=== PATIENT | male | born 1990 | race Two or more races ===

== ENCOUNTER 2020-11-12 15:18 | Outpatient (REF) | payer OTHER, SELFPAY ==
--- NOTE | ~2020-11-12 | XR_ITS ---
EXAMINATION: XR FOREARM, RIGHT CLINICAL INFORMATION: Right forearm pain. COMPARISON: None TECHNIQUE: AP and lateral views of the right forearm were obtained. FINDINGS: Volar stabilization plate with fixation screws at the mid radial diaphysis. No acute hardware or osseous fracture. No perihardware lucency to suggest loosening or infection. No abnormal soft tissue calcification. XR/XR forearm RT 2V IMPRESSION: Radial ORIF without evidence of complication. No acute osseous abnormality.
== END 2020-11-12 15:19 | disposition home or self-care (01) ==
LOC: HO.XRAY 15:18
PROVIDERS: PCP Internal Medicine; Visit Provider Internal Medicine
DX: M79.631 Pain in right forearm (principal)
CPT/HCPCS: 73090

== ENCOUNTER 2020-12-28 11:51 | Outpatient (REF) | payer OTHER, SELFPAY ==
[2020-12-28 16:00] LABS: SARS COV2 PCR INHOUSE NEGATIVE (Negative)
== END 2020-12-28 11:52 | disposition home or self-care (01) ==
LOC: HO.LAB 11:51
PROVIDERS: Visit Provider Internal Medicine
DX: Z20.822 Contact with and (suspected) exposure to COVID-19 (principal)
CPT/HCPCS: C9803; U0003

== ENCOUNTER 2021-05-28 11:54 | Outpatient (REF) | payer OTHER, SELFPAY ==
[2021-05-28 12:43] LABS: COVID-19 Test Negative (Negative)
== END 2021-05-28 11:55 | disposition home or self-care (01) ==
LOC: HO.LAB 11:54
PROVIDERS: PCP Internal Medicine; Visit Provider Internal Medicine
DX: Z20.822 Contact with and (suspected) exposure to COVID-19 (principal)
CPT/HCPCS: 36415; 87635; C9803

== ENCOUNTER 2023-06-15 17:21 | Outpatient (AMB) | payer OTHER, SELFPAY ==
[2023-06-15 17:22] VITALS: BP 122/80; BMI 17.0
--- NOTE | 2023-06-15 17:22 | A.OFFPC_ITS ---
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 by: Self / Same As Patient Allergies No Known Allergies [No Known Allergies*] Allergy (Verified 06/15/23 17:31) Medication List - Last Reconciled 06/15/23 by Tahmina Corley MD No Known Home Meds Tobacco use date assessed: 06/15/23 Dental Screening Dental Screen Date: 06/15/23 Did you have a dental visit in the last 12 months?: Yes Did you have a dental problem in the last 6 months where you did not have access to dental care?: No Was dental information given to patient?: Patient has dentist HPI HPI Comments History of Present Illness Details This is a 33-year-old male that comes for his physical exam. No chest pain or shortness of breath. Doing well. FOR[facility]LY [facility], LATER [facility] Medical History Right forearm pain Right arm fracture Surgical History History of open reduction and internal fixation (ORIF) procedure History of tooth extraction Family History Father No problems noted. Mother Liver failure Paternal Grandmother Diabetes Hypertension CVD (cardiovascular disease) Paternal Grandfather Heart problem Sister In good health Sister In good health Sister In good health Brother In good health Brother In good health Brother In good health Social History Housing: Apartment Alcohol intake: current Alcohol intake frequency: a few times a month Alcohol type: beer Patient Tobacco Use Status: Never used Tobacco Tobacco use type: Cigarette e-Cigarette/Vaping Use: Never Used Second Hand Smoke Exposure: No service: No Current occupational status: unemployed Cognitive needs: No Hearing needs: No Vision needs: No Questionnaire PHQ-9 Over the last 2 weeks, how often have you been bothered by any of the following problems? 1. Little interest or pleasure in doing things: not at all 2. Feeling down, depressed, or hopeless: not at all 3. Trouble falling or staying asleep, or sleeping too much: not at all 4. Feeling tired or having little energy: not at all 5. Poor appetite or overeating: not at all 6. Feeling bad about yourself - or that you are a failure or have let yourself or your family down: not at all 7. Trouble concentrating on things, such as reading the newspaper or watching television: not at all 8. Moving or speaking so slowly that other people could have noticed. Or the opposite - being so fidgety or restless that you have been moving around a lot more than usual: not at all 9. Thoughts that you would be better off or of hurting yourself in some way: not at all Total score: 0 Depression Screening Interpretation: Negative 41254 - PHQ-9 Billing: Yes Source: Developed by Drs. Dontae Rodríguez, Gaviota Dumont, Doroteo Patel and colleagues, with an educational jesse from [employer]. Thrive Questionnaire Date Thrive assessed: 06/15/23 I am a: Patient What is your living situation today?: I have a steady place to live Within the past 12 months, did the food you bought not last and you didn't have the money to get more?: Never true Within the past 12 months, did you worry whether your food would run out before you got money to buy more?: Never true Do you have trouble paying for medicines?: No Do you have trouble getting transportation to medical appointments?: No Do you have trouble paying your heating and electricity bill?: No Do you have trouble taking care of your child, family member or friend?: No Do you have trouble with day-to-day activities such as bathing, preparing meals, shopping, managing finances, etc.?: No Are you currently unemployed and looking for a job?: No Are you interested in more education?: No Please select the resources that you would like help with: None Currently or been in a relationship where the following occur: no concerns reported AUDIT C Alcohol Use Questionnaire (AUDIT-C) 1. How often do you have a drink containing alcohol?: 2-4 times a month 2. How many drinks containing alcohol do you have on a typical day when you are drinking?: 1 or 2 3. How often do you have six or more drinks on one occasion?: Never Total Score: 2 Score Reviewed/Action Taken: No MARINE-7 AMB Questionnaire MARINE-7 Date MARINE - 7 assessed: 06/15/23 Feeling nervous, anxious, or on edge: 0 = Not at all Not being able to stop or control worryin = Not at all Worrying too much about different things: 0 = Not at all Trouble relaxin = Not at all Being so restless that it is hard to sit still: 0 = Not at all Becoming easily annoyed or irritable: 0 = Not at all Feeling afraid as if something awful might happen: 0 = Not at all Total MARINE-7 score (0-4 normal; 5-9 mild; 10-14 moderate; 15-21 severe): 0 Source: Developed by Drs. Dontae Rodríguez, Gaviota Dumont, Doroteo Patel and colleagues, with an educational jesse from [employer]. MARINE-7 Assessment Billing MARINE-7 Assessment Tool: MARINE-7 Assessment 29065 Review of Systems Const All systems reviewed & are unremarkable except as noted in HPI and below Eyes Reports no additional complaints, Denies change in vision and Denies other visual disturbances Card Denies chest pain at rest, Denies chest pain with activity, Denies edema, Denies irregular heart rhythm, Denies claudication, Denies dyspnea, Denies dyspnea on exertion, Denies orthopnea, Denies paroxysmal nocturnal dyspnea and Denies slow heart rate Resp Denies cough, Denies dyspnea and Denies dyspnea on exertion GI Denies abdominal pain, Denies change in bowel habits, Denies excessive flatus, Denies nausea and Denies vomiting Denies urinary hesitancy, Denies urinary incontinence and Denies urinary urgency Musc Denies abnormal gait, Denies atrophy, Denies deformity and Denies limited range of motion Skin/Breast Denies bleeding lesions, Denies changing lesions and Denies rash Neuro Denies abnormal gait and Denies lack of coordination Physical exam (Primary Care) Vital Signs: Last Vital Signs BP 122/80 06/15/23 17:22 BMI result Body Mass Index 17.0 Tobacco/Smoking Status: Tobacco use Status Tobacco use date assessed 06/15/23 06/15/23 17:32 Patient Tobacco Use Status Never used Tobacco 06/15/23 17:32 Tobacco use type Cigarette 06/15/23 17:32 e-Cigarette/Vaping Use Never Used 06/15/23 17:32 PHQ-9: PHQ-9 Score PHQ-9: Total score 0 06/15/23 17:36 Depression Screening Interpretation: Negative Thrive Assessment: Date of Thrive Assessment Date Thrive assessed 06/15/23 06/15/23 17:32 Currently or been in a relationship where the following occur: no concerns reported Const Orientation/consciousness: patient oriented x3 HENMT Head: Yes normal to inspection, Yes normocephalic and Yes atraumatic Ears: external ears normal Mouth: lip normal Eyes General: appearance normal, both eyes and all related structures Eyelids: Yes eyelids normal Conjunctivae: conjunctivae normal Neck Neck: Yes normal visual inspection and Yes supple Resp Effort & Inspection: normal respiratory effort Auscultation: clear to auscultation bilaterally Cardio Jugular venous distension: no JVD Rate: regular rate Rhythm: regular rhythm Heart sounds: S1 normal heart sound present and S2 normal heart sound present GI Inspection: Yes normal to inspection Palpation (GI): Soft to palpation and nontender Auscultation: normal bowel sounds Skin General skin exam: no rashes or lesions noted Neuro General: patient oriented x3 and no focal motor deficits Extrem General: Yes full ROM Psych Appearance: grossly normal Assessment and Plan Assessment & Plan (1) Encounter for physical examination: Code(s): Z00.00 - Encounter for general adult medical examination without abnormal findings Plan: Repear in a year. Orders: Orders HIV Ab/Ag Today Z00.00 - Encounter for general adult medical examination without abnormal findings Lipid Panel Today Z00.00 - Encounter for general adult medical examination without abnormal findings Comprehensive [place]. Panel Fast Today Z00.00 - Encounter for general adult medical examination without abnormal findings Coding Level of Care Code Est Pt Prev Care 18-39y(74038) Diagnoses Encounter for physical examination Z00.00 Additional Codes MARINE-7 Assessment Billing - MARINE-7 Assessment Tool: MARINE-7 Assessment 83177 ([id number]) Time Spent (min) 30
== END 2023-06-15 17:39 | disposition home or self-care (01) ==
LOC: HO.HMGH 17:21
PROVIDERS: PCP Internal Medicine; Visit Provider Internal Medicine
DX: Z00.00 Encounter for general adult medical examination without abnormal findings (principal)
CPT/HCPCS: 99395

== ENCOUNTER 2023-07-01 09:23 | Outpatient (REF) | payer OTHER, SELFPAY | END 2023-07-01 09:24 | disposition home or self-care (01) | LOC: HO.LAB 09:23 | PROVIDERS: PCP Internal Medicine; Visit Provider Internal Medicine | DX: Z00.00 Encounter for general adult medical examination without abnormal findings (principal) | CPT/HCPCS: 36415; 80053; 80061; 87389 ==

== ENCOUNTER 2025-04-21 11:12 | Emergency (ER) | payer OTHER, SELFPAY ==
--- NOTE | ~2025-04-21 | XR_ITS ---
EXAMINATION: XR LUMBOSACRAL SPINE CLINICAL INFORMATION: midline tenderness COMPARISON: None available. TECHNIQUE: Three views of the lumbosacral spine. FINDINGS: There are 5 nonrib-bearing lumbar segments. Vertebral body height and alignment is preserved. There is mild disc space narrowing at L4-5. XR/XR lumbar spine 2-3V IMPRESSION: Minimal degenerative disc disease at L4-5. Electronically signed by: Jan Poe MD 04/21/2025 12:53 PM EDT
[2025-04-21 12:37] VITALS: BP 112/59; PULSE 55; RESP 16; TEMP 36.3; O2SAT 100; BMI 16.7
--- NOTE | 2025-04-21 12:37 | ED.GENADULT ---
HPI - General Adult General Chief complaint: Back Pain/Injury Stated complaint: back pain Time Seen by Provider: 04/21/25 12:38 Source: patient, RN notes reviewed and old records reviewed Mode of arrival: ambulatory Limitations: no limitations History of Present Illness ED Provider: Amari HPI narrative: Patient is a 34-year-old male presenting with complaint of lower back pain for the past 2 days. 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 Denies saddle anesthesia, bowel or bladder incontinence, fevers, hx of IVDU. Denies radiation of pain to lower extremities. complaint: back pain Onset (ago): day(s) Related Data Previous Rx's ?Medication ?Instructions ?Recorded cyclobenzaprine 10 mg tablet 10 mg PO TID PRN muscle spasm #10 04/21/25 tabs lidocaine 5 % topical patch 1 patch topical DAILY #15 ea 04/21/25 Allergies Allergy/AdvReac Type Severity Reaction Status Date / Time No Known Allergies (No Known Allergy Verified 04/21/25 12:39 Allergies*) Review of Systems Review of Systems: As per HPI Yes all other systems are reviewed and are negative Constitutional: Constitutional: Reports as per HPI PMFSH Past Medical History Medical History Right forearm pain Right arm fracture Surgical History History of open reduction and internal fixation (ORIF) procedure History of tooth extraction Family History Family History Father No problems noted. Mother Liver failure Paternal Grandmother Diabetes Hypertension CVD (cardiovascular disease) Paternal Grandfather Heart problem Sister In good health Sister In good health Sister In good health Brother In good health Brother In good health Brother In good health Social History Social History Housing: Apartment Alcohol intake: current Alcohol intake frequency: a few times a month Alcohol type: beer Patient Tobacco Use Status: Never used Tobacco Tobacco use type: Cigarette e-Cigarette/Vaping Use: Never Used Second Hand Smoke Exposure: No Advance Directives: No Advance Directives Information Provided: Yes service: No Current occupational status: unemployed Cognitive needs: No Hearing needs: No Vision needs: No Physical Exam ED Vital Signs: Vital Signs - 24 hr 04/21/25 12:37 04/21/25 13:37 Temperature 97.4 F 97.4 F Pulse Rate 55 55 Respiratory Rate 16 16 Blood Pressure 112/59 L 112/59 L Pulse Oximetry 100 100 Oxygen Delivery Method Room Air BMI result Body Mass Index 16.7 Vital signs have been reviewed and appear to be correct. Blood pressure normal. Heart rate normal. Respiratory rate normal. Temperature normal. Oxygen saturation normal. Const General: cooperative, healthy appearing and no acute distress Orientation/consciousness: oriented to person, oriented to place, oriented to time and patient oriented x3 Limitations: no limitations HENMT Head: Yes normocephalic and Yes atraumatic Ears: external ears normal General nose exam: Normal external nose present Face and sinus: Yes face symmetric Mouth: oropharynx normal and moist mucous membranes Throat: Yes uvula midline Eyes Pupils: Equal, round and reactive pupils present Neck Neck: Yes normal visual inspection and Yes supple Resp Effort & Inspection: normal respiratory effort and able to speak in complete sentences Auscultation: clear to auscultation bilaterally Cardio Rate: regular rate Rhythm: regular rhythm Heart sounds: S1 normal heart sound present and S2 normal heart sound present GI Palpation (GI): Soft to palpation and nontender Auscultation: normoactive bowel sounds General: Yes no CVA tenderness Back/Spine/Pelvis Back: no CVA tenderness Thoracic/Lumbar Spine: thoracic and lumbar spine normal to inspection, thoraco-lumbar ROM normal, straight leg raise negative bilaterally, pain with thoraco-lumbar ROM, No paraspinal muscle tenderness, No thoracic spinal tenderness and lumbar spinal tenderness at L4 and at L5 Skin General skin exam: elasticity normal and turgor normal Neuro General: oriented to person, oriented to place, oriented to time, patient oriented x3, gait normal, tone normal, moves all extremities, Normal light touch and pain sensation, no focal motor deficits, CN's II-XI intact bilaterally and deep tendon reflexes 2+ bilaterally Cranial nerves: Yes Equal, round and reactive pupils present Cognition (Neuro): normal cognition Motor exam (neuro): 5/5 motor strength present throughout, Normal motor muscle tone present throughout and Motor abnormalities not present Extrem General: Yes full ROM, Yes no pedal edema and Yes no calf tenderness Psych Mental Status: mental status grossly normal Affect: normal affect Thought process: Normal thought process present Medical Decision Making Medical Decision Making [facility] Narrative: Patient is a 34-year-old male presenting with complaint of lower back pain for the past 2 days. On exam patient is awake, A+Ox3, VS WNL, afebrile, normal neurological exam without focal deficits, physical exam findings as above. Given reported symptoms and physical exam findings, initial differential includes but is not limited to initial differential includes lumbar strain, lumbar radiculopathy, degenerative disc disease, disc herniation, spinal stenosis, spondylosis. Less likely vertebral fracture. Do not suspect malignancy/mass, SEA, cauda equina/cord compression. X-ray lumbar spine notable for mild DDD. My interpretation is in agreement with the radiologist's interpretation. Results discussed with patient all questions answered. Will treat with Flexeril and topical lidocaine patches. Return precautions discussed. Patient verbalized understanding of and agreement with plan. In-person certified court interpreter was utilized for all interactions, assessments, and discussions. Differential Diagnosis Differential Diagnoses: The differential diagnosis associated with the presentation includes as per [facility] Admission/Observation Consideration of admission/observation: Escalation of care including admission/observation considered Patient would have been admitted to the hospital had their clinical presentation warranted hospital admission. Independent Interpretation I performed an independent interpretation of an: Plain X-Ray Interpretation: Mild lumbar DDD on xray Radiology Impression Discussion of test interpretation with radiology: I have reviewed the radiologist's reading. Radiologist Impression: XR/XR lumbar spine 2-3V IMPRESSION: Minimal degenerative disc disease at L4-5. External Record Review External record reviewed: Inpatient record, Office record and Outpatient record Prescription Management I considered prescription management with: Other Discharge Plan Discharge Clinical Impression: DDD (degenerative disc disease), lumbar Qualifiers: Disc-related pain type: discogenic back pain only Qualified Code(s): M51.360 - Other intervertebral disc degeneration, lumbar region with discogenic back pain only Lumbar strain Qualifiers: Encounter type: initial encounter Qualified Code(s): S39.012A - Strain of muscle, fascia and tendon of lower back, initial encounter Patient Disposition: Home, Self-Care Instructions: Degenerative Disc Disease (ED) Additional Instructions: You were evaluated in the emergency department today for back pain. Your evaluation did not show signs of medical conditions requiring emergent intervention at this time. We recommended that you use ibuprofen or Tylenol per package directions every 6 hours as needed for pain. If necessary, you can alternate these medications so that you take one medication every 3 hours. For instance, at noon take ibuprofen, then at 3:00 p.m. take Tylenol, then at 6:00 p.m. take ibuprofen. You have been prescribed a muscle relaxer called Flexeril (cyclobenzaprine) which you may take every 8 hours as needed for spasms. Do not drive, drink alcohol, or operate heavy machinery while taking this as it can cause drowsiness. You have been prescribed 5% topical lidocaine patches which you can wear for up to 12 hours in a 24 hour period. Do not apply heat directly over the patches. Please schedule an appointment for follow-up with your primary care physician this week for further evaluation of your symptoms. Return to the emergency department if you experience worsening back pain, difficulty walking, fevers, numbness, tingling, incontinence, groin numbness or tingling, or any other concerning symptoms. Prescriptions: New cyclobenzaprine 10 mg tablet 10 mg PO TID PRN (Reason: muscle spasm) Qty: 10 0RF lidocaine 5 % adhesive patch,medicated 1 patch topical DAILY Qty: 15 0RF Rx Instructions: leave on most painful area for up to 12 hrs Stand Alone Forms: Work/School Release Interventions: ED Discharge Assessment Last Done: 04/21/25 13:37 Discharge Date/Time: 04/21/25 13:41 Print Language: Slovenian
[2025-04-21 13:37] VITALS: BP 112/59; PULSE 55; RESP 16; TEMP 36.3; O2SAT 100
== END 2025-04-21 13:41 | disposition home or self-care (01) ==
PROVIDERS: Emergency Provider Emergency Medicine; PCP Internal Medicine
DX: M51.360 Other intervertebral disc degeneration, lumbar region with discogenic back pain only (principal); S39.012A Strain of muscle, fascia and tendon of lower back, initial encounter; X50.9XXA Other and unspecified overexertion or strenuous movements or postures, initial encounter; Y93.9 Activity, unspecified; Y92.9 Unspecified place or not applicable; Y99.9 Unspecified external cause status
CPT/HCPCS: 72100; 99282; 99283

== ENCOUNTER → 2025-04-21 12:38 | Outpatient (BNV) | payer OTHER, SELFPAY | PROVIDERS: Emergency Provider Emergency Medicine; PCP Internal Medicine; Visit Provider Radiology Diagnostic Radiology | DX: M54.50 Low back pain, unspecified (principal) | CPT/HCPCS: 72100 ==

== ENCOUNTER 2025-05-04 21:18 | Emergency (ER) | payer OTHER, SELFPAY ==
[2025-05-04 21:25] VITALS: BP 113/67; PULSE 70; RESP 18; TEMP 37.2; O2SAT 97; BMI 17.8
[2025-05-05 01:47] VITALS: BP 97/56; PULSE 71; RESP 16; TEMP 36.7; O2SAT 98
[2025-05-05 06:38] VITALS: BP 97/55; PULSE 68; RESP 18; O2SAT 99
--- NOTE | 2025-05-05 06:42 | ED.BACK ---
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 Sheri Lua HPI Narrative: 34-year-old male with no significant past medical history presenting with continued low back pain radiating down both of his buttocks and legs to about the area of his knees bilaterally. Patient was seen in this emergency department approximately 1 week prior with similar complaints. Patient admits that he feels his back pain is related to lifting at work. Admits he continues to do the same job and feels as though it is exacerbated by lifting at work. No further back trauma. No specific injury. Patient denies associated fevers or chills, headaches or vision changes, stiff neck, loss of bowel or bladder control, urinary retention, direct trauma to the spine or specific injury, numbness/tingling/weakness of the extremities, IV drug use, history of recent instrumentation or injections into the spine. Related Data Previous Rx's ?Medication ?Instructions ?Recorded cyclobenzaprine 10 mg tablet 10 mg PO TID PRN muscle spasm #10 04/21/25 tabs lidocaine 5 % topical patch 1 patch topical DAILY #15 ea 04/21/25 methylprednisolone 4 mg tablets in 4 mg PO DAILY #21 ea 05/05/25 a dose pack (Medrol (Jerry)) cyclobenzaprine 10 mg tablet 10 mg PO TID PRN muscle spasm #20 05/09/25 tabs ibuprofen 600 mg tablet 600 mg PO Q6H PRN pain #30 tabs 05/09/25 ondansetron 4 mg disintegrating 4 mg PO Q8H PRN nausea and 05/09/25 tablet vomiting #20 tabs Allergies Allergy/AdvReac Type Severity Reaction Status Date / Time No Known Allergies (No Known Allergy Verified 05/09/25 19:20 Allergies*) Review of Systems Review of Systems: as per HPI, full review of systems performed and negative but for the above mentioned pertinent positives and negatives. [facility] Past Medical History Medical History Right forearm pain Right arm fracture Surgical History History of open reduction and internal fixation (ORIF) procedure History of tooth extraction Family History Family History Father No problems noted. Mother Liver failure Paternal Grandmother Diabetes Hypertension CVD (cardiovascular disease) Paternal Grandfather Heart problem Sister In good health Sister In good health Sister In good health Brother In good health Brother In good health Brother In good health Social History Social History Housing: Apartment Alcohol intake: current Alcohol intake frequency: a few times a month Alcohol type: beer Patient Tobacco Use Status: Never used Tobacco Tobacco use type: Cigarette Smoked in Last 30 Days: No e-Cigarette/Vaping Use: Never Used Second Hand Smoke Exposure: No Use of substances other than those prescribed or required for medical reasons: No Advance Directives: No Advance Directives Information Provided: No service: No Current occupational status: unemployed Cognitive needs: No Hearing needs: No Vision needs: No Physical Exam Exam: Exam: GENERAL: well-appearing, appears uncomfortable. SKIN: Normal skin color for ethnicity, warm, dry, no rashes noted. HEENT:? Normocephalic, atraumatic, no stridor, dry mucous membranes, dentition intact, EOMI. NECK: Soft, supple, full ROM, midline structures nontender, no step-offs, no deformities, no lymphadenopathy. CHEST: Heart regular rhythm, no murmurs, symmetric chest rise and fall. PULMONARY: Clear to auscultation bilaterally, diminished at the bases, no labored breathing, no wheezes/rhales/rhonchi. ABDOMINAL: Soft, nondistended, nontender, positive bowel sounds in all quadrants. : Deferred. MUSCULOSKELETAL: Normal tone, full range of motion, no deformities, no peripheral edema, +2/4 Patellar reflexes bilaterally, neurovascularly intact distally, no midline spine tenderness or step-off. NEURO: Alert and oriented x3, CN II through XII intact, equal strength and sensation bilateral upper and lower extremities, no focal neurologic deficits.? PSYCHIATRIC: Flat affect, fluid speech, good eye contact and appropriate demeanor. Vital Signs: Vital Signs: Last Vital Signs Temp 97.8 F 05/05/25 06:50 Pulse 68 05/05/25 06:50 Resp 18 05/05/25 06:50 BP 97/55 L 05/05/25 06:50 Pulse Ox 99 05/05/25 06:50 O2 Del Method Room Air 05/05/25 06:50 BMI result Body Mass Index 17.8 Medications Administered Discontinued Medications Generic Name Dose Route Start Last Admin Trade Name Caridad PRN Reason Stop Dose Admin Dexamethasone Sodium Phosphate 6 mg 05/05/25 06:28 05/05/25 06:36 Dexamethasone Sod Phosphate 4 Mg/Ml Vial IM 05/05/25 06:29 6 mg ONCE ONE Administration Diazepam 2 mg 05/05/25 06:28 05/05/25 06:36 Diazepam 2 Mg Tablet PO 05/05/25 06:29 2 mg ONCE ONE Administration Medical Decision Making Medical Decision Making MDM Narrative: Patient presents today with a chief complaint of back pain. Differential diagnosis includes musculoskeletal pain, osseous abnormality such as fracture or tumor, infection, spinal cord pathology such as cauda equina syndrome, ligamentous or disc pathology, vascular abnormalities, among many others. I reviewed the list of red flag features such as trauma, weight loss, abnormal neurological findings such as weakness, bowel or bladder incontinence, saddle paresthesia, as well as history of cancer, IV drug abuse, fever, to list a few. Based on history and physical examination, there is no further indication for continued neuroimaging or lab work. He has no evidence of infection, no direct trauma to the spine, exam consistent with sciatic nerve pain. We will continue with muscle relaxers. He requested and was provided with a work note. Discussed return precautions at length. He understands and agrees with plan for discharge. Discharged home in stable condition. 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 No suspenda gail medicamento antes de tiempo si empieza a sentirse mejor. Regrese a urgencias si presenta s?ntomas nuevos o que empeoran, colleen p?rdida del control de la vejiga o los intestinos, fiebre superior a 38?C, debilidad en las piernas o cualquier s?ntoma nuevo que le preocupe. Llame al 911 ante cualquier emergencia m?dica. Prescriptions: New methylprednisolone [Medrol (Jerry)] 4 mg tablets,dose pack 4 mg PO DAILY Qty: 21 0RF No Action cyclobenzaprine 10 mg tablet 10 mg PO TID PRN (Reason: muscle spasm) Qty: 10 0RF lidocaine 5 % adhesive patch,medicated 1 patch topical DAILY Qty: 15 0RF Rx Instructions: leave on most painful area for up to 12 hrs cyclobenzaprine 10 mg tablet 10 mg PO TID PRN (Reason: muscle spasm) Qty: 20 0RF ibuprofen 600 mg tablet 600 mg PO Q6H PRN (Reason: pain) Qty: 30 0RF ondansetron 4 mg tablet,disintegrating 4 mg PO Q8H PRN (Reason: nausea and vomiting) Qty: 20 0RF Stand Alone Forms: Work/School Release Interventions: ED Discharge Assessment Last Done: 05/05/25 06:50 Discharge Date/Time: 05/05/25 06:52 Print Language: Faroese
[2025-05-05 06:50] VITALS: BP 97/55; PULSE 68; RESP 18; TEMP 36.6; O2SAT 99
--- NOTE | 2025-05-05 07:11 | ED.BACK ---
HPI - Back Pain/Injury General Chief Complaint: Back Pain/Injury Stated Complaint: back pain, pain travels to legs Time Seen by Provider: 05/05/25 06:01 Related Data Previous Rx's ?Medication ?Instructions ?Recorded cyclobenzaprine 10 mg tablet 10 mg PO TID PRN muscle spasm #10 04/21/25 tabs lidocaine 5 % topical patch 1 patch topical DAILY #15 ea 04/21/25 methylprednisolone 4 mg tablets in 4 mg PO DAILY #21 ea 05/05/25 a dose pack (Medrol (Jerry)) Allergies Allergy/AdvReac Type Severity Reaction Status Date / Time No Known Allergies (No Known Allergy Verified 05/04/25 21:28 Allergies*) [facility] Past Medical History Medical History Right forearm pain Right arm fracture Surgical History History of open reduction and internal fixation (ORIF) procedure History of tooth extraction Family History Family History Father No problems noted. Mother Liver failure Paternal Grandmother Diabetes Hypertension CVD (cardiovascular disease) Paternal Grandfather Heart problem Sister In good health Sister In good health Sister In good health Brother In good health Brother In good health Brother In good health Social History Social History Housing: Apartment Alcohol intake: current Alcohol intake frequency: a few times a month Alcohol type: beer Patient Tobacco Use Status: Never used Tobacco Tobacco use type: Cigarette e-Cigarette/Vaping Use: Never Used Second Hand Smoke Exposure: No Advance Directives: No Advance Directives Information Provided: No service: No Current occupational status: unemployed Cognitive needs: No Hearing needs: No Vision needs: No Physical Exam Vital Signs: Vital Signs: Last Vital Signs Temp 97.8 F 05/05/25 06:50 Pulse 68 05/05/25 06:50 Resp 18 05/05/25 06:50 BP 97/55 L 05/05/25 06:50 Pulse Ox 99 05/05/25 06:50 O2 Del Method Room Air 05/05/25 06:50 BMI result Body Mass Index 17.8 Medications Administered Discontinued Medications Generic Name Dose Route Start Last Admin Trade Name Freq PRN Reason Stop Dose Admin Dexamethasone Sodium Phosphate 6 mg 05/05/25 06:28 05/05/25 06:36 Dexamethasone Sod Phosphate 4 Mg/Ml Vial IM 05/05/25 06:29 6 mg ONCE ONE Administration Diazepam 2 mg 05/05/25 06:28 05/05/25 06:36 Diazepam 2 Mg Tablet PO 05/05/25 06:29 2 mg ONCE ONE Administration Discharge Plan Discharge Clinical Impression: Sciatica Qualifiers: Laterality: right Qualified Code(s): M54.31 - Sciatica, right side Patient Disposition: Home, Self-Care Instructions: Sciatica (ED) Additional Instructions: [place] tobin esteroides todos los d?as hasta completar el tratamiento. No suspenda gail medicamento antes de tiempo si empieza a sentirse mejor. Regrese a urgencias si presenta s?ntomas nuevos o que empeoran, colleen p?rdida del control de la vejiga o los intestinos, fiebre superior a 38?C, debilidad en las piernas o cualquier s?ntoma nuevo que le preocupe. Llame al 911 ante cualquier emergencia m?dica. Prescriptions: New methylprednisolone [Medrol (Jerry)] 4 mg tablets,dose pack 4 mg PO DAILY Qty: 21 0RF No Action cyclobenzaprine 10 mg tablet 10 mg PO TID PRN (Reason: muscle spasm) Qty: 10 0RF lidocaine 5 % adhesive patch,medicated 1 patch topical DAILY Qty: 15 0RF Rx Instructions: leave on most painful area for up to 12 hrs Stand Alone Forms: Work/School Release Interventions: ED Discharge Assessment Last Done: 05/05/25 06:50 Discharge Date/Time: 05/05/25 06:52 Print Language: Beninese
== END 2025-05-05 06:52 | disposition home or self-care (01) ==
PROVIDERS: Emergency Provider Emergency Medicine; PCP Internal Medicine
DX: M54.30 Sciatica, unspecified side (principal); M25.562 Pain in left knee; M25.561 Pain in right knee
CPT/HCPCS: 96372; 99283; 99284; J1100

== ENCOUNTER 2025-05-09 18:49 | Emergency (ER) | payer OTHER, SELFPAY ==
[2025-05-09] VITALS (7 sets, daily range): BP systolic 104–111; BP diastolic 60–78; PULSE 70–105; RESP 15–18; TEMP 36.9–38.6; O2SAT 98–99; BMI 16.4; BMI 18.0
--- NOTE | ~2025-05-09 | CT_ITS ---
CLINICAL HISTORY: R flank pain, weight loss, fevers CT abdomen and pelvis with contrast Comparison: None provided. Findings: No consolidation or effusion. The gallbladder and solid organs are within normal limits. There is minimal fullness of the bilateral renal collecting systems with mild diffuse bilateral hydroureter. The kidneys enhance symmetrically. No bowel obstruction, pneumoperitoneum, or pneumatosis. Multiple fluid-filled loops of nondilated ileum are present at the mid to lower abdomen. Mildly limited evaluation of the distal colon and rectum related to bowel underdistention at these sites. Pelvic contents unremarkable. No bladder wall thickening. The bladder is moderately distended with fluid. Minimal free fluid present within the pelvis. Normal appendix. No acute fracture visualized. IMPRESSION: 1. Multiple fluid-filled loops of nondilated ileum present at the mid to lower abdomen. This finding is nonspecific, but may be seen in the setting of a mild enteritis. No bowel obstruction. 2. Minimal fullness of the bilateral renal collecting systems without overt hydronephrosis. There is mild, diffuse bilateral hydroureter. This is nonspecific but may be related to the moderately distended urinary bladder. No bladder wall thickening appreciated. 3. Minimal free fluid present dependently within the pelvis. This is abnormal in a male patient, suggesting reactive fluid. This document has been electronically signed by: Tacho Mcdonald MD on 05/09/2025 21:21:31
--- NOTE | 2025-05-09 19:21 | ED_ITS ---
HPI - Back Pain/Injury General Chief Complaint: Fever Stated Complaint: back pain Time Seen by Provider: 05/09/25 19:19 Source: patient and old records reviewed Mode of arrival: ambulatory Limitations: no limitations History of Present Illness ED Provider: ROBERT WEBB Narrative: 34 yo male with no sig PMH works in [employer] has had R sided flank pain x 1 month but unknown trauma. He has no IVDA, no b/b incontinence no saddle anesthesia. He started with a fever last night and pain worsened at 9pm. He denies dysuria, has mild diarrhea, denies any recent travel or procedures. He took no medications today. He thinks he has lost 20lbs in the past month as well. MD elicited complaint: back pain Pertinent past history: prior back pain Onset (ago): month(s) (1) Severity: severe Quality: aching Location: lumbar spine and right flank Radiation: buttocks Exacerbating factors: movement Relieving factors: none Context: unknown Associated symptoms: fever, chills and other (diarrhea) Work related injury: No Related Data Previous Rx's ?Medication ?Instructions ?Recorded cyclobenzaprine 10 mg tablet 10 mg PO TID PRN muscle s pasm #10 04/21/25 tabs lidocaine 5 % topical patch 1 patch topical DAILY #15 ea 04/21/25 methylprednisolone 4 mg tablets in 4 mg PO DAILY #21 e a 05/05/25 a dose pack (Medrol (Jerry)) cyclobenzaprine 10 mg tablet 10 mg PO TID PRN muscle s pasm #20 05/09/25 tabs ibuprofen 600 mg tablet 600 mg PO Q6H PRN pain #30 t abs 05/09/25 ondansetron 4 mg disintegrating 4 mg PO Q8H PRN nausea and 05/09/25 tablet vomiting #20 tabs Allergies Allergy/AdvReac Type Severity Reaction Status Date / Time No Known Allergies (No Known Allergy Verified 05/09/25 19:20 Allergies*) Review of Systems 2 Review of Systems: Constitutional : pos Weight loss, pos Fever, pos Chills, ENT/Mouth : No Hearing loss, No Ear Pain, No Nasal Congestion, No Sinus Pain, No Hoarseness, No sore throat, No Rhinorrhea, No Swallowing Difficulty Cardiovascular : No Chest Pain, No SOB Respiratory : No Cough, No Dyspnea Gastrointestinal : No Nausea, No Vomiting, pos Diarrhea, No abdominal Pain, No Hematochezia, No Melena Genitourinary : No Dysuria, No Urinary Frequency, No Hematuria, No Urinary Incontinence, Musculoskeletal : positive back pain Skin : No Skin Lesions, No rash Neuro : No Weakness, No Numbness, No Paresthesias, no loss of bowel or bladder incontinence, no saddle anesthesia Yes all other systems are reviewed and are negative [facility] Past Medical History Attestation statement: The following information was validated with the patient. Source: old records reviewed Medical History Right forearm pain Right arm fracture Surgical History History of open reduction and internal fixation (ORIF) procedure History of tooth extraction Family History Family History Father No problems noted. Mother Liver failure Paternal Grandmother Diabetes Hypertension CVD (cardiovascular disease) Paternal Grandfather Heart problem Sister In good health Sister In good health Sister In good health Brother In good health Brother In good health Brother In good health Social History Social History Housing: Apartment Alcohol intake: current Alcohol intake frequency: a few times a month Alcohol type: beer Patient Tobacco Use Status: Never used Tobacco Tobacco use type: Cigarette Smoked in Last 30 Days: No e-Cigarette/Vaping Use: Never Used Second Hand Smoke Exposure: No Use of substances other than those prescribed or required for medical reasons: No Advance Directives: No Advance Directives Information Provided: No service: No Current occupational status: unemployed Cognitive needs: No Hearing needs: No Vision needs: No Physical Exam 2 Vital Signs: Vital Signs: Last Vital Signs Temp 98.9 F 05/09/25 21:39 Pulse 70 05/09/25 21:39 Resp 17 05/09/25 21:39 BP 107/69 05/09/25 21:39 Pulse Ox 98 05/09/25 21:39 O2 Del Method Room Air 05/09/25 21:39 BMI result Body Mass Index 18.0 Appearance: Alert. Oriented X3. Mild acute distress. Eyes: Pupils equal, round and reactive to light. ENT: Pharynx dry MM. He is thin has mild temporal wasting Neck: Normal inspection. Neck supple. CVS: tachycardic heart rate and rhythm. Pulses normal. Respiratory: No respiratory distress. Breath sounds normal. Abdomen: Soft and nontender. Flank: R CVA ttp, has no midline ttp Skin: Skin warm and dry. Normal skin color. Normal skin turgor. Extremities: No lower extremity edema. No calf ttp Neuro: Oriented X 3. No motor deficit. No sensory deficit. 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 Defer additional HPI, ROS and PE to primary provider. This is a 34-year-old male with no known medical history who has been struggling with lower back pain for the last month. Today noted to be febrile. Patient also reports unintentional weight loss. Patient has fever and tachycardia in triage Will obtain labs, UA, viral testing. Tylenol will be ordered Nursing notified and patient will be brought direct to bed as he is meeting sepsis criteria. Reevaluation(s) Reevaluation #1: voided and bladder scan 116 Medications Administered Discontinued Medications Generic Name Dose Route Start Last Admin Trade Name Freq PRN Reason Stop Dose Admin Acetaminophen 975 mg 05/09/25 19:20 05/09/25 19:47 Acetaminophen 325 Mg Tablet PO 05/09/25 19:21 Not Given ONCE ONE Ceftriaxone Sodium 1 gm 05/09/25 19:37 05/09/25 19:47 Ceftriaxone Sodium 1 Gm Vial IVPUSH 05/09/25 19:38 1 gm ONCE ONE Administration Sodium Chloride 1,000 mls @ 999 mls/hr 05/09/25 19:21 05/09/25 22:00 Ns IV 05/09/25 20:21 Infused .Q1H1M STA Infusion Lactated Ringer's 1,000 mls @ 999 mls/hr 05/09/25 19:37 05/09/25 22:00 Lr IV 05/09/25 20:37 Infused .Q1H1M ONE Infusion Acetaminophen 1,000 mg in 100 mls @ 400 mls/hr 05/09/25 19:37 05/09/25 20:20 Ofirmev IV 05/09/25 19:51 Infused ONCE ONE Infusion Ketorolac Tromethamine 15 mg 05/09/25 19:37 05/09/25 19:48 Ketorolac Tromethamine 15 Mg/Ml Vial IVPUSH 05/09/25 19:38 15 mg ONCE ONE Administration Medical Decision Making Medical Decision Making [facility] Narrative: 34 yo male with no sig PMH here with c/o fevers and diarrhea which are new since 9pm yesterday. He denies travel or sick contacts. He has had R flank pain x 1 month now with weight loss. He adamantly denies IVDA. At this time will need labs, cultures, CT scan for mass/pyelo Differential Diagnosis Differential Diagnoses: The differential diagnosis associated with the presentation includes pyelo, tick borne illness, viral syndrome, mass, cancer Admission/Observation Consideration of admission/observation: Escalation of care including admission/observation considered tolerating PO. his weight loss he has gained back 4kg from prior visit no mass in back. no midline ttp I do not think he has epidural abscess he is not toxic looks much better no CP/SOB to suggest VTE will DC with motrin, zofran, flexeril, PT script Lab Data [facility] Lab Attestation statement: I reviewed the patient's lab results. 05/09/25 19:29 05/09/25 19:29 Labs: Lab Results 05/09/25 05/09/25 05/09/25 Range/Units 19:29 20:09 21:22 WBC 12.4 H (4.8-10.8) X10*3/uL RBC 5.17 (4.60-5.80) X10*6/uL Hgb 15.0 (14.0-18.0) g/dl Hct 43.8 (42.0-52.0) % MCV 84.7 (80.0-98.0) fL MCH 29.0 (27.0-33.0) pg MCHC 34.2 (31.0-36.0) g/dl RDW 12.8 (11.0-16.0) % Plt Count 401 H (160-400) X10*3/uL MPV 10.1 (9.4-12.4) fL Immature Gran % (Auto) 0.4 (0.0-0.4) % Neut % (Auto) 74.4 H (45-73) % Lymph % (Auto) 9.5 L (20-40) % Bureau % (Auto) 15.3 H (2-11) % Eos % (Auto) 0.2 (0-4) % Baso % (Auto) 0.2 (0-2) % Lymph # (Auto) 1.2 (1.2-4.9) X10*3/uL Bureau # (Auto) 1.9 H (0.1-1.2) X10*3/uL Eos # (Auto) 0.0 (0.0-0.4) X10*3/uL Baso # (Auto) 0.0 (0.0-0.2) X10*3/uL Abs Immat Gran (auto) 0.05 H (0.00-0.03) X10*3/uL Absolute Neuts (auto) 9.2 H (2.0-8.3) x10*3/uL Absolute Nucleated RBC 0.000 (0.0-0.012) X10*3/uL Nucleated RBC % (auto) 0.0 (0.0-0.2) /100WBC Smear Tech's Comments VERIFIED Sodium 137 (135-145) mmol/L Potassium 5.3 H (3.3-5.1) mmol/L Chloride 98 (96-108) mmol/L Carbon Dioxide 28 (22-29) mmol/L Anion Gap 16 (12-20) BUN 13 (9-16) mg/dL Creatinine 0.89 (0.5-1.4) mg/dL Estim Creat Clear Calc 88.4 Estimated GFR > 60 Random Glucose 91 (60-115) mg/dL Lactic Acid 1.8 (0.5-2.0) mmol/L Calcium 9.2 (8.4-10.2) mg/dL Total Bilirubin 0.5 (0.0-1.0) mg/dL Direct Bilirubin 0.1 (0.0-0.5) mg/dL AST 42 H (5-37) U/L ALT 31 (0-40) U/L Alkaline Phosphatase 89 (39-117) U/L Total Protein 8.7 H (6.5-8.0) g/dL Albumin 4.5 (3.5-5.0) g/dL Urine Color Yellow Urine Appearance Clear Urine pH 7.0 (5.0-9.0) Ur Specific [place] 1.010 (1.005-1.025) Urine Protein Negative (Neg-Trace) mg/dL Urine Glucose (UA) Negative (Negative) mg/dL Urine Ketones Negative (Negative) mg/dL Urine Blood Negative (Negative) Urine Nitrite Negative (Negative) Ur Leukocyte Esterase Negative (Negative) Urine Opiates Screen Not Detected (Not Detect) Ur Buprenorphine Scrn Not Detected (Not Detect) ng/mL Ur Oxycodone Screen Not Detected (Not Detect) ng/mL Urine Methadone Screen Not Detected (Not Detect) ng/mL Urine Fentanyl Screen Not Detected (Not Detect) Ur Barbiturates Screen Not Detected (Not Detect) Ur Phencyclidine Scrn Not Detected (Not Detect) Ur Amphetamines Screen Not Detected (Not Detect) U Benzodiazepines Scrn Not Detected (Not Detect) Urine Cocaine Screen Not Detected (Not Detect) U Marijuana (THC) Screen Not Detected (Not Detect) Influenza Type A (PCR) NEGATIVE (Negative) Influenza Type B (PCR) NEGATIVE (Negative) RSV RNA Qual (PCR) NEGATIVE (Negative) SARS-CoV-2 RNA (RT-PCR) POSITIVE A (Negative) S. pyogenes GrpA DONA Negative (Negative) Independent Interpretation I performed an independent interpretation of an: CT Scan (enteritis , reactive free fluid) Radiology Impression Discussion of test interpretation with radiology: I have reviewed the radiologist's reading. External Record Review External record reviewed: Outpatient record Prescription Management I considered prescription management with: Pain Medication, Antiviral and Other Discharge Plan Discharge Clinical Impression: COVID-19, Gastroenteritis Fever Qualifiers: Fever type: unspecified Qualified Code(s): R50.9 - Fever, unspecified Patient Disposition: Home, Self-Care Instructions: Flank Pain (ED), Enteritis (ED), COVID-19 (Coronavirus Disease 2019) (ED) Additional Instructions: rest and stay hydrated return for worsening symptoms, chest pain, trouble breathing, unable to eat or drink, numbness or weakness or any other concerns you need to see your doctor about your back pain wear a mask and protect others for the next 5 days Prescriptions: New cyclobenzaprine 10 mg tablet 10 mg PO TID PRN (Reason: muscle spasm) Qty: 20 0RF ibuprofen 600 mg tablet 600 mg PO Q6H PRN (Reason: pain) Qty: 30 0RF ondansetron 4 mg tablet,disintegrating 4 mg PO Q8H PRN (Reason: nausea and vomiting) Qty: 20 0RF No Action methylprednisolone [Medrol (Jerry)] 4 mg tablets,dose pack 4 mg PO DAILY Qty: 21 0RF cyclobenzaprine 10 mg tablet 10 mg PO TID PRN (Reason: muscle spasm) Qty: 10 0RF lidocaine 5 % adhesive patch,medicated 1 patch topical DAILY Qty: 15 0RF Rx Instructions: leave on most painful area for up to 12 hrs Stand Alone Forms: Work/School Release Print Language: Kyrgyz
[2025-05-09 19:43] LABS: Hematocrit 43.8 % (42.0-52.0); Hemoglobin 15.0 g/dl (14.0-18.0); Imm Gran Abs Auto 0.05 X10*3/uL (0.00-0.03); Imm Gran Pct Auto 0.4 % (0.0-0.4); Lymphocytes Absolute Auto 1.2 X10*3/uL (1.2-4.9); MANUAL DIFF FLAG SCAN; Mean Corpuscular HGB Conc 34.2 g/dl (31.0-36.0); Mean Corpuscular Hemoglobin 29.0 pg (27.0-33.0); Mean Corpuscular Volume 84.7 fL (80.0-98.0); NRBC Abs Auto 0.000 X10*3/uL (0.0-0.012); NRBC Pct Auto 0.0 /100WBC (0.0-0.2); Platelet Count 401 X10*3/uL (160-400); Red Blood Count 5.17 X10*6/uL (4.60-5.80); SCAN SMEAR FLAG 1; White Blood Count 12.4 X10*3/uL (4.8-10.8)
[2025-05-09] MEDS: Lactated Ringers 1,000 ML 999 ML IV (19:48)
[2025-05-09 20:00] LABS: Alanine Aminotransferase 31 U/L (0-40); Albumin Level 4.5 g/dL (3.5-5.0); Alkaline Phosphatase 89 U/L (39-117); Anion Gap 16 (12-20); Aspartate Amino Transferase 42 U/L (5-37); Blood Urea Nitrogen 13 mg/dL (9-16); Calcium 9.2 mg/dL (8.4-10.2); Carbon Dioxide 28 mmol/L (22-29); Chloride 98 mmol/L (96-108); Creatinine Clr Calc Pharmacy 88.4; Estimated Glomerular Filt Rate > 60; Potassium 5.3 mmol/L (3.3-5.1); Sodium 137 mmol/L (135-145); Total Protein 8.7 g/dL (6.5-8.0)
[2025-05-09 20:13] LABS: Resp Syncy Virus RNA Qual PCR NEGATIVE (Negative); SARS COV2 PCR INHOUSE POSITIVE (Negative)
[2025-05-09 20:23] LABS: IDNOW Serial# 55D5AD1C; Strep A Nucleic Acid Negative (Negative)
--- NOTE | 2025-05-09 20:24 | PC.NURSE ---
pt a&ox4, respirations even and unlabored. 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 pt brought from waiting room into ed 6, pt noted to be febrile. sepsis alert called, 20g placed in left bicep. pt medicated per nov, nsr on tele
--- NOTE | 2025-05-09 20:54 | PC.NURSE ---
pt back from ct at this time , fluids continue to administer
[2025-05-09 21:28] LABS: Appearance Urine Clear; Glucose Urine UA Negative (Negative); PH 7.0 (5.0-9.0); Specific Gravity - Urine 1.010 (1.005-1.025)
--- NOTE | 2025-05-09 21:36 | PC.NURSE ---
per provider, blader scan pt pre void, pt bladder scan for 350, pt voided at this time, repeat scan of 116 , provider aware
[2025-05-09 21:38] LABS: Cannabinoid Screen Urine Not Detected (Not Detect)
[2025-05-12 22:43] LABS: Lyme Abs Screen <0.90 index
[2025-05-13 03:39] LABS: A. Phagocytphilium DNA,RT-PCR NOT DETECTED (NOT DETECTED); Babesia Microti DNA, RT-PCR NOT DETECTED (NOT DETECTED); Borrelia Miyamotoi,DNA RT-PCR NOT DETECTED (NOT DETECTED); E.Chaffeensis DNA RT-PCR NOT DETECTED (NOT DETECTED); Lyme(Borrelia ssp)DNA RT-PCR NOT DETECTED (NOT DETECTED)
== END 2025-05-09 23:25 | disposition home or self-care (01) ==
PROVIDERS: Nurse Practitioner Family; Emergency Provider Emergency Medicine; PCP Internal Medicine
DX: U07.1 COVID-19 (principal); K52.9 Noninfective gastroenteritis and colitis, unspecified; R50.9 Fever, unspecified; R10.2 Pelvic and perineal pain; M54.50 Low back pain, unspecified; R00.0 Tachycardia, unspecified; R11.0 Nausea; Z51.81 Encounter for therapeutic drug level monitoring; Z79.899 Other long term (current) drug therapy
CPT/HCPCS: 51798; 74177; 80048; 80076; 80307; 81003; 83605; 85025; 86617; 86618; 87040; 87468; 87469; 87478; 87484; 87637; 87651; 87798; 96361; 96365; 96375; 99285; J0131; J0696; J1885; J7120

== ENCOUNTER → 2025-05-09 19:37 | Outpatient (BNV) | payer OTHER, SELFPAY | PROVIDERS: Emergency Provider Emergency Medicine; PCP Internal Medicine; Visit Provider Radiology Diagnostic Radiology | DX: M54.50 Low back pain, unspecified (principal) | CPT/HCPCS: 74177 ==